=== PATIENT | female | born 1975 | race Two or more races ===

== ENCOUNTER 2022-06-08 19:09 | Emergency (ER) | payer OTHER ==
[~2022-06-08] VITALS: Ht 170.2 cm; Wt 102.7 kg
[2022-06-08] MEDS ORDERED: LORazepam 0.5 MG TAB PO ONE (19:30)
[2022-06-08] MEDS ORDERED: ASPirin 81 mg TAB PO ONE (19:30)
[2022-06-08 20:03] LABS: Basophils # (auto) 0.1 10 ^3/uL (0-0.2); Basophils % (auto) 0.7 % (0.0-2.0); Eosinophils # (auto) 0.1 10 ^3/uL (0-0.8); Eosinophils % (auto) 1.1 % (0.0-7.0); Hematocrit 44.9 % (36.0-46.0); Hemoglobin 14.9 g/dL (12.2-16.2); Lymphocytes # (auto) 2.3 10 ^3/uL (0.4-5.4); Lymphocytes % (auto) 30.9 % (10.0-50.0); Mean Corpuscular Hemoglobin 29.5 pg (28.0-32.0); Mean Corpuscular Hgb Conc. 33.2 g/dL (32.0-36.0); Mean Corpuscular Volume 88.8 fL (80.0-100.0); Monocytes # (auto) 0.6 10 ^3/uL (0-1.3); Monocytes % (auto) 8.1 % (0.0-12.0); Neutrophils # (auto) 4.5 10 ^3/uL (1.6-8.6); Neutrophils % (auto) 59.2 % (37.0-80.0); Red Blood Cells 5.05 10^6/uL (4.0-5.20); Red Cell Distribution Width 12.5 % (11.8-14.3); White Blood Cell 7.6 10^3/uL (4.4-10.8)
[2022-06-08 20:16] LABS: Magnesium 1.9 mg/dL (1.6-2.6)
[2022-06-08 20:19] LABS: BUN/Creatinine Ratio 16.7; Bilirubin, Total 0.6 mg/dL (0.2-1.0); Total Protein 7.8 g/dL (6.4-8.2)
[2022-06-08 20:27] LABS: INR 0.95 (0.9-1.15); Partial Thromboplastin Time 28.4 sec (24.6-33.4)
[2022-06-08 20:37] LABS: Alcohol, Urine < 3.0 mg/dL (0-10); Amphetamine Screen, Urine NEGATIVE (NEGATIVE); Barbiturate Scree,Urine NEGATIVE (NEGATIVE); Benzodiazephine Screen, Urine NEGATIVE (NEGATIVE); Cocaine Screen, Urine NEGATIVE (NEGATIVE); Opiate Scree,Urine NEGATIVE (NEGATIVE); Phencyclidine Screen, Urine NEGATIVE (NEGATIVE)
[2022-06-08 20:38] LABS: Cannabinoid Screen, Urine NEGATIVE (NEGATIVE)
[2022-06-08] MEDS ORDERED: NITROGLYCERIN 0.4MG/DOSE SPRAY 4.9GM SL ONE (21:15)
[2022-06-09] MEDS ORDERED: ACETAMINOPHEN 325 MG TAB PO ONE (00:30)
[2022-06-09 07:41] VITALS: BP 118/70
== END 2022-06-09 08:09 | disposition short-term general hospital (02) ==
LOC: ER 19:09
DX: R07.89 Other chest pain (principal); I20.9 Angina pectoris, unspecified; F41.9 Anxiety disorder, unspecified; R00.2 Palpitations; E11.9 Type 2 diabetes mellitus without complications; Z20.822 Contact with and (suspected) exposure to COVID-19
CPT/HCPCS: 36415; 71045; 80053; 80307; 81025; 83735; 83880; 84484; 85025; 85379; 85610; 85730; 87426; 93005